=== PATIENT | female | born 2005 | race Caucasian/White ===

== ENCOUNTER 2025-01-21 13:41 | Emergency (ER) | payer OTHER ==
[2025-01-21 14:00] VITALS: BP 130/73; PULSE 71; RESP 18; TEMP 98.6; BMI 20.7
[2025-01-21] MEDS ORDERED: MAG HYDROX/AL HYDROX/SIMETH 30 ML UNIT-DOSE CUP ONE (14:08)
[2025-01-21] MEDS ORDERED: FAMOTIDINE 20 MG TABLET ONE (14:08)
[2025-01-21] MEDS: FAMOTIDINE 20 MG TABLET PO ONE (14:09)
[2025-01-21] MEDS: MAG HYDROX/AL HYDROX/SIMETH -MYLANTA- ORAL SUSPENSION PO ONE (14:09)
[2025-01-21 14:17] LABS: HCG,QUALITATIVE URINE Negative
[2025-01-21] MEDS ORDERED: ONDANSETRON *ODT* 4 MG TABLET ONE (14:46)
[2025-01-21] MEDS: ONDANSETRON 4 MG TABLET PO ONE (14:47)
[2025-01-21] MEDS ORDERED: ACETAMINOPHEN 325 MG TABLET (FP) ONE (14:48)
[2025-01-21] MEDS: ACETAMINOPHEN 325 MG TABLET (FP) PO ONE (14:49)
== END 2025-01-21 15:59 | disposition home or self-care (01) ==
LOC: FER 13:41
DX: R10.13 Epigastric pain (principal); R10.84 Generalized abdominal pain; R11.0 Nausea
CPT/HCPCS: 81003; 84703; 87086; 99284-25